=== PATIENT | male | born 1940 | race Caucasian/White ===

== ENCOUNTER 2022-06-12 21:23 | Inpatient (IN) ==
[2022-06-13] MEDS ORDERED: Melatonin 3 MG TABLET PO PRN (02:43)
[2022-06-13] MEDS ORDERED: Ondansetron ODT 4 MG TAB.RAPDIS SL PRN (02:43)
[2022-06-13] MEDS ORDERED: Naloxone 0.4 MG/ML INJ IVP PRN (02:43)
[2022-06-13] MEDS ORDERED: D5% in Water 1,000 ML IVC PRN (02:56)
[2022-06-13] MEDS ORDERED: Dextrose Gel 15 GM/37.5 ML TUBE PO PRN ×2 (02:56)
[2022-06-13] MEDS ORDERED: *HR* Dextrose 50 % in Water (Syg) 50 ML SYRINGE IVP PRN (02:56)
[2022-06-13] MEDS: Ampicillin 2,000 MG in 0.9 % Sodium Chloride Mini Bag 100 ML IVPB SCH ×2 (04:22→15:37)
[2022-06-13 05:23] LABS: VBG HCO3 8 mEq/L (21-27); VBG PCO2 17 mmHg (41-51); VBG PH 7.29 pH Units (7.32-7.42); VBG PO2 113 mmHg (25-50)
[2022-06-13 05:30] LABS: Hematocrit 30.5 % (37.5-50.1); Hemoglobin 10.1 g/dL (12.9-16.9); Mean Corpuscular HGB Conc 33.1 g/dL (31.6-35.5); Mean Corpuscular Hemoglobin 27.9 pg (28.0-33.3); Mean Corpuscular Volume 84.3 fL (83.0-100.0); Mean Platelet Volume 11.3 fL (9.4-12.4); Platelet Count 282 K/mcL (140-400); Red Blood Count 3.62 M/mcL (4.19-5.50); Red Cell Distribution Width 14.6 % (11.5-14.5); White Blood Count 12.2 K/mcL (4.3-11.1)
[2022-06-13 05:39] LABS: Heparin anti-factor XA UFH 0.06 IU/mL (0.30-0.70)
[2022-06-13 05:41] LABS: INR 1.1; Prothrombin Time 12.4 Seconds (9.4-12.1)
[2022-06-13 05:42] LABS: Activated Partial Thrombo Time 32.1 Seconds (26.0-36.0)
[2022-06-13 05:46] LABS: Albumin 3.4 g/dL (3.5-5.7); Bilirubin,Total 0.2 mg/dL (0.3-1.0); Calcium 8.1 mg/dL (8.6-10.3); Globulin 3.3 g/dL (2.4-3.5); Magnesium 2.2 mg/dL (1.6-2.6); Phosphorous 5.8 mg/dL (2.7-4.5); Potassium 3.5 mEq/L (3.5-5.1); Total Protein 6.7 g/dL (6.4-8.9)
[2022-06-13 06:04] LABS: Bacteria,Urine Few per hpf (None-Few); Bilirubin,Urine Negative (Negative); Blood,Urine Moderate (Negative); Clarity,Urine Turbid (Clear); Color,Urine Light-Yellow (Yellow); Glucose,Urine (UA) Normal (Normal); Ketones,Urine Negative (Negative); Leukocyte Esterase,Urine Large (Negative); Mucus,Urine Few per lpf (None-Few); Nitrite,Urine Negative (Negative); Protein,Urine 50 mg/dL (Neg-Trace); RBC,Urine 30-50 per hpf (0-3); Specific Gravity,Urine 1.013 (1.010-1.025); Squamous Epithelial Cell,Urine Few per hpf (None-Few); Urobilinogen,Urine Normal (Normal); WBC,Urine TNTC per hpf (0-3)
[2022-06-13 06:11] LABS: Sodium, Urine 66.8 mEq/L
[2022-06-13] MEDS ORDERED: *HR* Heparin 5,000 UNIT/ML VIAL IVP ONE (06:11)
[2022-06-13] MEDS ORDERED: *HR* Heparin 5,000 UNIT/ML VIAL IVP PRN ×2 (06:11)
[2022-06-13] MEDS ORDERED: Sodium Bicarbonate 100 MEQ in 0.45 % Sodium Chloride 1,000 ML IVC SCH (06:15)
[2022-06-13] MEDS ORDERED: Insulin Human Regular 10 UNIT in 0.9 % Sodium Chloride 10 ML IV ONE (06:30)
[2022-06-13] MEDS ORDERED: Insulin LISPRO 300 UNITS/3 ML VIAL SUBQ SCH ×2 (07:30→21:00)
[2022-06-13] MEDS: Heparin 25,000UNIT/250ML 1/2NS 25,000 UNIT/250 ML IV.SOLN IVC SCH (08:23)
[2022-06-13] MEDS: Sodium Bicarbonate 150 MEQ in D5% in Water 1,000 ML IVC SCH ×2 (08:27→18:28)
[2022-06-13] MEDS: Phenytoin 200 MG in Equashield Syringe 1 EACH IVP SCH ×2 (08:33→18:31)
[2022-06-13] MEDS: Insulin LISPRO 300 UNITS/3 ML VIAL SUBQ SCH ×4 (08:44→21:12)
[2022-06-13 12:38] LABS: Calcium 7.8 mg/dL (8.6-10.3)
[2022-06-13 12:39] LABS: Albumin 3.1 g/dL (3.5-5.7); Bilirubin,Total 0.2 mg/dL (0.3-1.0); Calcium 7.8 mg/dL (8.6-10.3); Globulin 3.2 g/dL (2.4-3.5); Total Protein 6.3 g/dL (6.4-8.9)
[2022-06-13] MEDS: Aspirin 81 MG TAB.CHEW PO SCH (15:42)
[2022-06-13] MEDS: carvediloL 6.25 MG TABLET PO SCH ×2 (15:42→18:26)
[2022-06-13] MEDS: amLODIPine 5 MG TABLET PO SCH (15:43)
[2022-06-14] MEDS: Insulin LISPRO 300 UNITS/3 ML VIAL SUBQ SCH ×6 (00:35→21:21)
[2022-06-14] MEDS: Heparin 25,000UNIT/250ML 1/2NS 25,000 UNIT/250 ML IV.SOLN IVC SCH ×2 (01:11→10:15)
[2022-06-14] MEDS: Ampicillin 2,000 MG in 0.9 % Sodium Chloride Mini Bag 100 ML IVPB SCH (04:21)
[2022-06-14 05:15] LABS: Basophils # 0.1 K/mcL (0.0-0.2); Basophils % 0.7 %; Eosinophils # 0.2 K/mcL (0.0-0.6); Eosinophils % 1.7 %; Hematocrit 26.4 % (37.5-50.1); Immature Granulocytes % 1.7 % (0-4); Lymphocytes # 3.1 K/mcL (0.6-4.6); Lymphocytes % 25.5 %; Mean Corpuscular HGB Conc 34.1 g/dL (31.6-35.5); Mean Platelet Volume 11.5 fL (9.4-12.4); Monocytes # 1.4 K/mcL (0.0-1.3); Monocytes % 11.4 %; Neutrophils # 7.2 K/mcL (1.6-8.9); Nucleated Red Blood Cells 0.2 /100 WBC (0); Platelet Count 256 K/mcL (140-400); Red Blood Count 3.22 M/mcL (4.19-5.50); Red Cell Distribution Width 14.6 % (11.5-14.5); White Blood Count 12.2 K/mcL (4.3-11.1)
[2022-06-14 05:31] LABS: Albumin 2.9 g/dL (3.5-5.7); Albumin/Globulin Ratio 0.9 (1.1-2.2); Bilirubin,Total 0.2 mg/dL (0.3-1.0); Calcium 7.7 mg/dL (8.6-10.3); Globulin 3.1 g/dL (2.4-3.5); Potassium 2.6 mEq/L (3.5-5.1)
[2022-06-14] MEDS: Sodium Bicarbonate 150 MEQ in D5% in Water 1,000 ML IVC SCH ×2 (06:20→16:40)
[2022-06-14] MEDS: Phenytoin 200 MG in Equashield Syringe 1 EACH IVP SCH ×2 (06:21→18:16)
[2022-06-14] MEDS: amLODIPine 5 MG TABLET PO SCH (08:37)
[2022-06-14] MEDS: Lactulose Oral Soln 20 GM/30 ML UDC PO SCH ×2 (08:37→21:06)
[2022-06-14] MEDS: Aspirin 81 MG TAB.CHEW PO SCH (08:37)
[2022-06-14] MEDS: Loratadine 10 MG TABLET PO SCH (08:37)
[2022-06-14] MEDS: carvediloL 6.25 MG TABLET PO SCH ×2 (10:18→18:17)
[2022-06-14] MEDS: cefTRIAXone 1,000 MG in 0.9 % Sodium Chloride 10 ML IVP SCH (13:18)
[2022-06-14 22:42] LABS: Phenytoin (Dilantin) Free 1.3 ug/mL (1.0-2.5)
[2022-06-15] MEDS: Insulin LISPRO 300 UNITS/3 ML VIAL SUBQ SCH ×6 (01:25→21:31)
[2022-06-15 04:27] LABS: Basophils # 0.1 K/mcL (0.0-0.2); Basophils % 0.5 %; Eosinophils # 0.4 K/mcL (0.0-0.6); Eosinophils % 2.9 %; Hematocrit 23.4 % (37.5-50.1); Hemoglobin 7.7 g/dL (12.9-16.9); Immature Granulocytes % 1.5 % (0-4); Lymphocytes # 4.1 K/mcL (0.6-4.6); Lymphocytes % 30.3 %; Mean Corpuscular HGB Conc 32.9 g/dL (31.6-35.5); Mean Corpuscular Hemoglobin 27.4 pg (28.0-33.3); Mean Corpuscular Volume 83.3 fL (83.0-100.0); Mean Platelet Volume 10.9 fL (9.4-12.4); Monocytes # 1.6 K/mcL (0.0-1.3); Monocytes % 11.6 %; Neutrophils # 7.3 K/mcL (1.6-8.9); Platelet Count 236 K/mcL (140-400); Red Blood Count 2.81 M/mcL (4.19-5.50); Red Cell Distribution Width 14.5 % (11.5-14.5); Segmented Neutrophils % 53.2 %; White Blood Count 13.7 K/mcL (4.3-11.1)
[2022-06-15] MEDS: Sodium Bicarbonate 150 MEQ in D5% in Water 1,000 ML IVC SCH (04:30)
[2022-06-15 04:58] LABS: Albumin 2.6 g/dL (3.5-5.7); Albumin/Globulin Ratio 0.9 (1.1-2.2); Bilirubin,Total 0.2 mg/dL (0.3-1.0); Calcium 7.1 mg/dL (8.6-10.3); Globulin 2.8 g/dL (2.4-3.5); Potassium 2.2 mEq/L (3.5-5.1); Total Protein 5.4 g/dL (6.4-8.9)
[2022-06-15] MEDS: Phenytoin 200 MG in Equashield Syringe 1 EACH IVP SCH ×2 (06:52→18:22)
[2022-06-15] MEDS ORDERED: Ringers Solution, Lactated 1,000 ML IVC SCH (08:15)
[2022-06-15] MEDS: Heparin 25,000UNIT/250ML 1/2NS 25,000 UNIT/250 ML IV.SOLN IVC SCH ×2 (08:57→21:33)
[2022-06-15] MEDS: Lactulose Oral Soln 20 GM/30 ML UDC PO SCH ×2 (09:10→21:30)
[2022-06-15] MEDS: Aspirin 81 MG TAB.CHEW PO SCH (09:10)
[2022-06-15] MEDS: carvediloL 6.25 MG TABLET PO SCH ×2 (09:10→16:58)
[2022-06-15] MEDS: cefTRIAXone 1,000 MG in 0.9 % Sodium Chloride 10 ML IVP SCH (09:11)
[2022-06-15] MEDS: amLODIPine 5 MG TABLET PO SCH (09:11)
[2022-06-15] MEDS: Loratadine 10 MG TABLET PO SCH (09:11)
[2022-06-15 10:31] LABS: Phenytoin Percent Free 18.3 % (8.0-14.0)
[2022-06-15] MEDS: 0.9 % Sodium Chloride 1,000 ML IVC SCH ×2 (11:40→21:30)
[2022-06-15 16:22] LABS: Potassium 3.1 mEq/L (3.5-5.1)
[2022-06-16] MEDS: Insulin LISPRO 300 UNITS/3 ML VIAL SUBQ SCH ×7 (00:31→23:51)
[2022-06-16] MEDS: Phenytoin 200 MG in Equashield Syringe 1 EACH IVP SCH (02:21)
[2022-06-16] MEDS: Heparin 25,000UNIT/250ML 1/2NS 25,000 UNIT/250 ML IV.SOLN IVC SCH (05:00)
[2022-06-16] MEDS: 0.9 % Sodium Chloride 1,000 ML IVC SCH ×3 (05:00→20:58)
[2022-06-16 06:25] LABS: Albumin 2.7 g/dL (3.5-5.7); Albumin/Globulin Ratio 0.9 (1.1-2.2); Bilirubin,Total 0.2 mg/dL (0.3-1.0); Calcium 7.6 mg/dL (8.6-10.3); Potassium 2.5 mEq/L (3.5-5.1); Total Protein 5.7 g/dL (6.4-8.9)
[2022-06-16] MEDS: Aspirin 81 MG TAB.CHEW PO SCH (08:26)
[2022-06-16] MEDS: carvediloL 6.25 MG TABLET PO SCH ×2 (08:26→17:01)
[2022-06-16] MEDS: amLODIPine 5 MG TABLET PO SCH (08:27)
[2022-06-16] MEDS: Loratadine 10 MG TABLET PO SCH (08:27)
[2022-06-16] MEDS: Lactulose Oral Soln 20 GM/30 ML UDC PO SCH ×2 (08:30→21:39)
[2022-06-16] MEDS: cefTRIAXone 1,000 MG in 0.9 % Sodium Chloride 10 ML IVP SCH (08:30)
[2022-06-16 13:57] LABS: Folate 5.6 ng/mL (3.0-16.0)
[2022-06-16 14:21] LABS: Basophils # 0.1 K/mcL (0.0-0.2); Basophils % 0.6 %; Eosinophils # 0.5 K/mcL (0.0-0.6); Eosinophils % 5.7 %; Hematocrit 22.9 % (37.5-50.1); Hemoglobin 7.5 g/dL (12.9-16.9); Immature Granulocytes % 2.1 % (0-4); Lymphocytes # 2.3 K/mcL (0.6-4.6); Lymphocytes % 25.8 %; Mean Corpuscular HGB Conc 32.8 g/dL (31.6-35.5); Mean Corpuscular Volume 85.4 fL (83.0-100.0); Mean Platelet Volume 11.3 fL (9.4-12.4); Monocytes # 0.8 K/mcL (0.0-1.3); Monocytes % 9.1 %; Platelet Count 238 K/mcL (140-400); Red Blood Count 2.68 M/mcL (4.19-5.50); Red Cell Distribution Width 14.6 % (11.5-14.5); Segmented Neutrophils % 56.7 %; White Blood Count 8.8 K/mcL (4.3-11.1)
[2022-06-16 19:39] LABS: Calcium 7.4 mg/dL (8.6-10.3); Potassium 2.8 mEq/L (3.5-5.1)
[2022-06-17 01:17] LABS: Phenytoin (Dilantin) Free 1.5 ug/mL (1.0-2.5)
[2022-06-17] MEDS: Insulin LISPRO 300 UNITS/3 ML VIAL SUBQ SCH ×4 (06:26→11:51)
[2022-06-17 07:40] VITALS: TEMP 98.5
[2022-06-17] MEDS: cefTRIAXone 1,000 MG in 0.9 % Sodium Chloride 10 ML IVP SCH (08:06)
[2022-06-17] MEDS: Aspirin 81 MG TAB.CHEW PO SCH (08:06)
[2022-06-17] MEDS: amLODIPine 5 MG TABLET PO SCH (08:07)
[2022-06-17] MEDS: Loratadine 10 MG TABLET PO SCH (08:07)
[2022-06-17] MEDS: carvediloL 6.25 MG TABLET PO SCH (08:08)
[2022-06-17] MEDS ORDERED: lisinopriL 20 MG TABLET PO SCH (09:00)
[2022-06-17] MEDS ORDERED: *HR* Rivaroxaban 10 MG TABLET PO SCH (09:00)
[2022-06-17 09:50] LABS: Basophils % 0.3 %; Eosinophils # 0.6 K/mcL (0.0-0.6); Eosinophils % 6.4 %; Hematocrit 25.7 % (37.5-50.1); Hemoglobin 8.4 g/dL (12.9-16.9); Immature Granulocytes % 2.7 % (0-4); Lymphocytes # 2.6 K/mcL (0.6-4.6); Lymphocytes % 27.1 %; Mean Corpuscular HGB Conc 32.7 g/dL (31.6-35.5); Mean Corpuscular Hemoglobin 27.8 pg (28.0-33.3); Mean Corpuscular Volume 85.1 fL (83.0-100.0); Mean Platelet Volume 11.6 fL (9.4-12.4); Monocytes # 0.8 K/mcL (0.0-1.3); Monocytes % 7.8 %; Neutrophils # 5.4 K/mcL (1.6-8.9); Platelet Count 193 K/mcL (140-400); Red Blood Count 3.02 M/mcL (4.19-5.50); Red Cell Distribution Width 14.6 % (11.5-14.5); Segmented Neutrophils % 55.7 %; White Blood Count 9.7 K/mcL (4.3-11.1)
[2022-06-17 10:07] LABS: Albumin 2.4 g/dL (3.5-5.7); Albumin/Globulin Ratio 0.9 (1.1-2.2); Bilirubin,Total 0.2 mg/dL (0.3-1.0); Calcium 7.8 mg/dL (8.6-10.3); Globulin 2.6 g/dL (2.4-3.5); Potassium 3.2 mEq/L (3.5-5.1)
[2022-06-17 11:36] VITALS: BP 140/55; PULSE 60; O2SAT 99
[2022-06-17] MEDS: 0.9 % Sodium Chloride 1,000 ML IVC SCH (13:02)
== END 2022-06-17 14:32 | disposition home or self-care (01) | DRG 689 ==
LOC: 3NENU → SUATTDRO 06-13 02:43
PROVIDERS: ADMIT Internal Medicine; ATTEND Family Medicine